=== PATIENT | female | born 1935 | race Caucasian/White ===

== ENCOUNTER → 2016-12-06 | Outpatient (CLI) | payer MEDICARE ==
[~2016-12-06] MED LIST: CALC1TAB12 PO; ESTR42.5V VAGINAL; VITA100032 PO
[2016-12-06 11:41] LABS: AUTOMATED NEUTROPHIL # 3.7 TH/MM3 (1.8-7.7); BASOPHIL # 0.1 TH/MM3 (0-0.2); BASOPHIL % 0.9 % (0.0-2.0); EOSINOPHIL # 0.2 TH/MM3 (0-0.4); EOSINOPHIL % 2.9 % (0.0-4.0); HEMATOCRIT 43.4 % (35.0-46.0); HEMO FLAGS DIFF FINAL; LYMPH % 23.4 % (9.0-44.0); LYMPHOCYTE # 1.4 TH/MM3 (1.0-4.8); MEAN CELL VOLUME 93.4 FL (80.0-100.0); MEAN CORPUSCULAR HEMOGLOBIN 32.6 PG (27.0-34.0); MEAN CORPUSCULAR HGB CONC 34.9 % (32.0-36.0); MONO % 8.8 % (0.0-8.0); PLATELET COUNT 214 TH/MM3 (150-450); RED BLOOD COUNT 4.65 MIL/MM3 (4.00-5.30); RED CELL DISTRIBUTION WIDTH 13.4 % (11.6-17.2); WHITE BLOOD COUNT 5.9 TH/MM3 (4.0-11.0)
[2016-12-06 11:54] LABS: BACTERIA, URINE FEW /hpf; BLOOD, URINE NEG (NEG); GLUCOSE,URINE NEG (NEG); KETONE, URINE NEG (NEG); MUCUS URINE FEW /lpf (OCC); NITRITE,URINE NEG (NEG); PH, URINE 5.5 (5.0-8.5); SQUAMOUS EPITHELIAL CELL URINE 17 /hpf (0-5); URINE COLOR YELLOW (YELLW/STRAW)
[2016-12-06 12:12] LABS: BICARBONATE 32.1 MEQ/L (21.0-32.0); POTASSIUM 3.9 MEQ/L (3.5-5.1)
== END ==
LOC: CPRE 10:12
PROVIDERS: ATTEND Obstetrics & Gynecology
DX: Z01.812 Encounter for preprocedural laboratory examination (principal)
CPT/HCPCS: 36415; 80048; 81001; 85025

== ENCOUNTER 2016-12-14 05:54 | Observation (INO) | payer MEDICARE ==
[~2016-12-14] VITALS: Ht 165.1 cm; Wt 57.6 kg
[~2016-12-14 05:54] MED LIST changes: -VITA100032 PO
[2016-12-14 06:44] VITALS: BP 154/82; PULSE 81; RESP 20; TEMP 97.6; O2SAT 100
[2016-12-14] MEDS ORDERED: BUPIVACAINE HCL PF 0.25% 30 ML VIAL ONE (07:10)
[2016-12-14] MEDS ORDERED: ESTROGENS CONJUGATED VAG CREA 15 APPL/30 GM TUBE ONE (07:10)
[2016-12-14] MEDS ORDERED: ceFAZolin 2 GM PREMIX 50 ML IV SCH (07:15)
[2016-12-14] MEDS ORDERED: LACTATED RINGER'S 1000 ML INJ 1,000 ML ONE (07:25)
[2016-12-14] MEDS ORDERED: FAMOTIDINE 20 MG/2 ML VIAL ONE (07:45)
[2016-12-14] MEDS ORDERED: ACETAMINOPHEN 1000 MG/100 ML VIAL IV ONE (07:45)
[2016-12-14] MEDS ORDERED: DICLOFENAC SODIUM 37.5 MG/ML VIAL IV PUSH ONE (07:46)
[2016-12-14] MEDS ORDERED: SODIUM CHLORIDE 0.9% FLUSH 5 ML FLUSH FLUSH PRN (10:30)
[2016-12-14] MEDS ORDERED: MORPHINE SULFATE 4 MG/ML INJ IV PUSH PRN (10:30)
[2016-12-14] MEDS ORDERED: SODIUM CHLORIDE 0.9% FLUSH 5 ML FLUSH FLUSH SCH (10:30)
[2016-12-14] MEDS ORDERED: PROMETHAZINE INJ 25 MG/ML VIAL IM PRN (10:30)
[2016-12-14] MEDS ORDERED: ONDANSETRON HCL 4 MG/2 ML VIAL IVP PRN (10:30)
[2016-12-14] MEDS ORDERED: KETOROLAC TROMETHAMINE 30 MG/ML (IVP) VIAL IVP PRN (10:30)
[2016-12-14] MEDS ORDERED: ZOLPIDEM TARTRATE 5 MG TAB PO PRN (10:30)
[2016-12-14] MEDS ORDERED: diphenhydrAMINE HCL 25 MG CAP PO PRN (10:30)
[2016-12-14] MEDS ORDERED: IBUPROFEN 600 MG TAB PO PRN (10:30)
[2016-12-14] MEDS ORDERED: oxyCODONE/ACETAMINOPHEN 5 MG/325 MG TAB PO PRN ×2 (10:30)
[2016-12-14] MEDS ORDERED: fentaNYL CITRATE 250 MCG/5 ML AMP ONE (10:53)
[2016-12-14] MEDS ORDERED: MIDAZOLAM HCL 2 MG/2 ML VIAL ONE (10:53)
[2016-12-14] MEDS ORDERED: HYDROmorphone HCL PF 1 MG/ML VIAL IV PUSH PRN (11:30)
[2016-12-14] MEDS ORDERED: NEOSTIGMINE METHYLSULFATE 10 MG/10 ML VIAL IV PUSH ONE (12:00)
[2016-12-14] MEDS ORDERED: LACTATED RINGER'S 1000 ML INJ 1,000 ML IV ONE (12:00)
[2016-12-14] MEDS ORDERED: ONDANSETRON HCL 4 MG/2 ML VIAL IV PUSH ONE (12:00)
[2016-12-14] MEDS ORDERED: PROPOFOL 200 MG/20 ML AMP IV ONE (12:00)
[2016-12-14] MEDS: DOCUSATE SODIUM 100 MG CAP PO SCH (12:00)
[2016-12-14 12:58] VITALS: BP 152/67; PULSE 58; RESP 20; TEMP 97.6
[2016-12-14 18:17] VITALS: BP 153/65; PULSE 80; RESP 18; TEMP 99.2
[2016-12-14 19:35] VITALS: BP 138/66; PULSE 78; RESP 16; TEMP 97.9; O2SAT 98
[2016-12-14] MEDS: LACTATED RINGER'S 1000 ML INJ 1,000 ML IV SCH (19:38)
[2016-12-14 23:30] VITALS: BP 128/54; PULSE 83; RESP 16; TEMP 98.1; O2SAT 97
[2016-12-15] MEDS: DOCUSATE SODIUM 100 MG CAP PO SCH (00:11)
[2016-12-15 03:14] VITALS: BP 130/68; PULSE 80; RESP 16; TEMP 97.9; O2SAT 98
[2016-12-15] MEDS: LACTATED RINGER'S 1000 ML INJ 1,000 ML IV SCH (05:09)
--- NOTE | 2016-12-15 06:48 | MP ---
cc: GIDEON WINSTON MARGARET M.D. DATE OF SURGERY 12/14/2016 PREOPERATIVE DIAGNOSIS Patient with somatic pelvic prolapse, uterine prolapse stage III-IV, large stage III cystocele and a stage II rectocele. POSTOPERATIVE DIAGNOSIS Patient with somatic pelvic prolapse, uterine prolapse stage III-IV, large stage III cystocele and a stage II rectocele. PROCEDURE Transvaginal hysterectomy, anterior colporrhaphy, posterior colporrhaphy, cystourethroscopy. SURGEON Gideon Winston MD ANESTHESIA General with endotracheal intubation ESTIMATED BLOOD LOSS 150 cc DRAINS Moe to gravity OPERATIVE FINDINGS The patient had significant pelvic organ prolapse, large cystocele and a smaller rectocele. Surgical specimen included cervix and uterus. INDICATIONS FOR PROCEDURE Patient with chronic pelvic prolapse that was not amenable to the use of a pessary. The patient was counseled as to her options and elected for surgical repair. PROCEDURE NOTE The patient received Ancef 2 grams prophylactically. She underwent general anesthesia with endotracheal intubation. She was carefully positioned in a dorsolithotomy position using candy-cane stirrups with sequential placed on the lower extremities for VTE prophylaxis. She had appropriate padding during the positioning. After she was prepped and draped, time-out was conducted and agreed by all present in the room. A Moe catheter was then inserted by sterile technique draining clear urine. The patient's pessary was not previously removed. Exam revealed the preoperative findings. Initial dissection started with securing the cervix with a single-tooth tenaculum and then making a posterior colpotomy incision allowing dissection of the vaginal mucosa away from the cervix and securing the uterosacral ligaments using a curved Lorraine clamp. A curved Lorraine clamp was used in conjunction with a 2-0 Vicryl suture placing a suture and transfixing fashion. This was accomplished symmetrically allowing removal of the uterus complete with the cervix. The uterine ovarian pedicles were secured with a double tie of 2-0 Vicryl. All pedicles were dry at the completion of the hysterectomy. There was no disruption of the rectum the bladder. Both adnexa were palpable, but not visible and significantly atretic. The vaginal cuff was then closed with a running locking suture of 2-0 Vicryl and then an interrupted suture of 2-0 Vicryl is used to reapproximate the cuff for added support and closure. The uterosacral ligaments were reapproximated and plicated for support. The anterior colporrhaphy was then completed. A linear incision was made dissecting the vaginal mucosa away from the cystocele. Reduction of the cystocele was accomplished by a combination of sharp and blunt dissection with good result. Good hemostasis was noted throughout. Plication of the pubovaginal fascia using interrupted suture of 2-0 Monocryl using a UR6 needle was accomplished and then trimming the vaginal mucosa removing the redundancy and then closing the defect with a running suture of 3-0 Vicryl. The posterior defect was then opened in a similar fashion, injecting the vaginal mucosa with quarter percent plain Marcaine about 10 cc, making a linear incision over the surface of the defect and then dissecting the vaginal mucosa away from the rectocele. Plication sutures of 2-0 Monocryl were used as well and the redundant vaginal mucosa was trimmed and then closed with a running suture of 3-0 Vicryl. Cystourethroscopy was accomplished after backfilling the bladder of 200 cc. Integrity of bladder was confirmed with patency of the ureteral orifices. The Moe catheter was then reinserted after the cystourethroscopy was completed and then a 2-inch vaginal packing with Premarin was placed into the vaginal vault for support and tamponade. No active bleeding was noted prior to placement of the packing. At the completion of the case, the patient was stable. She was extubated, taken to the recovery room on room air. The final count was correct. MD ANETA Anton/DENISSE /10:34 AM /6:33 AM
[2016-12-15 08:00] VITALS: BP 128/61; PULSE 53; RESP 16; TEMP 98
--- NOTE | 2016-12-15 09:41 | HHI.PR ---
Subjective Remarks S/P TVH/A+P repair ; Doing well, pain is well controlled, eating well Needs to void prior to discharge. Objective Vital Signs Vital Signs Date Time Temp Pulse Resp B/P Pulse Ox O2 Delivery O2 Flow Rate FiO2 12/15/16 08:00 98.0 53 16 128/61 12/15/16 03:14 97.9 80 16 130/68 98 12/14/16 23:30 98.1 83 16 128/54 97 12/14/16 19:35 97.9 78 16 138/66 98 12/14/16 18:17 99.2 80 18 153/65 12/14/16 12:58 97.6 58 20 152/67 12/14/16 11:45 60 16 141/66 97 Room Air 12/14/16 11:30 67 16 170/72 96 Room Air 12/14/16 11:15 58 16 161/79 96 Room Air 12/14/16 11:00 79 16 158/78 95 Room Air 12/14/16 10:45 83 15 161/83 99 Simple Mask 6 12/14/16 10:33 97.4 90 15 155/92 99 Simple Mask 6 I/O 12/14/16 12/14/16 12/14/16 12/15/16 12/15/16 12/15/16 07:00 15:00 23:00 07:00 15:00 23:00 Intake Total 1600 ml 1230 ml Output Total 600 ml 800 ml 1300 ml Balance 1000 ml 430 ml -1300 ml Intake Oral 230 ml IV Total 1000 ml Other 1600 ml Output Urine Total 550 ml 800 ml 1300 ml Estimated Blood Loss 50 ml Objective Remarks Chest is clear, regular rate and rhythm. Abdomen is soft and non-distended. Incision is clean and dry. Ext no CCE. A/P Assessment and Plan Post Op Day 1; TVH/A+P repair Doing well; Awaiting voiding trial. Once she voids she can be diacharged Home today and return to office next weeks. Gideon Raya MD Dec 15, 2016 09:41
--- NOTE | 2016-12-15 09:42 | HHI.DCPOC ---
Discharge Care Plan Your Health Problems Are: Abdominal pain Fever, temperature>100.4 Pelvic pain Vaginal bleeding Report Symptoms to Your Doctor -Temperate above 100.5 degrees -Redness, of incision or excessive or foul smelling drainage -Unusual pain or calf pain -Increased vaginal bleeding -Painful or difficulty urinating -Feelings of extreme sadness or anxiety after 2 weeks Goals to Promote Your Health * To prevent worsening of your condition and complications * To maintain your health at the optimal level Directions to Meet Your Goals Take your medications as prescribed Follow your dietary instruction Follow activity as directed Ensure plenty of rest for recovery Drink fluids for hydration Keep your appointments as scheduled Take your immunizations and boosters as scheduled If your symptoms worsen call your PCP, if no PCP go to Urgent Care Center or Emergency Room Smoking is Dangerous to Your Health. Avoid second hand smoke Call the 24-hour crisis hotline for domestic abuse at Gideon Raya MD Dec 15, 2016 09:42
== END 2016-12-15 12:34 | disposition home or self-care (01) ==
LOC: HSDC 05:54 → HSDI 10:35 → H1EA 11:48
PROVIDERS: ADMIT Obstetrics & Gynecology; ATTEND Obstetrics & Gynecology
DX: N81.4 Uterovaginal prolapse, unspecified (principal); N80.0 Endometriosis of uterus; N84.1 Polyp of cervix uteri
CPT/HCPCS: 00942; 57260; 58260; 86850; 86900; 86901; 88307; 94150; G0378; J0131; J0690; J1130; J1885; J2250; J2405; J2710; J3010; J7120